=== PATIENT | male | born 1950 | race Caucasian/White ===

== ENCOUNTER → 2025-05-08 12:30 | Outpatient (REF) | payer MEDICARE, OTHER, SELFPAY | LOC: RCS 12:30 | PROVIDERS: ATTENDING PHYSICIAN Nurse Practitioner; FAMILY PHYSICIAN Family Medicine | DX: I10 Essential (primary) hypertension (principal); I35.0 Nonrheumatic aortic (valve) stenosis | CPT/HCPCS: 93306 ==

== ENCOUNTER → 2025-06-05 13:30 | Outpatient (REF) | payer MEDICARE, OTHER, SELFPAY | LOC: RCS 13:30 | PROVIDERS: ATTENDING PHYSICIAN Student in an Organized Health Care Education/Training Program; FAMILY PHYSICIAN Family Medicine | DX: I35.0 Nonrheumatic aortic (valve) stenosis (principal) | CPT/HCPCS: 93017; 93350 ==